=== PATIENT | male | born 1990 | race Caucasian/White ===

== ENCOUNTER → 2018-05-24 | Outpatient (REF) | payer BC | LOC: M LAB REF 19:15 | PROVIDERS: ATTEND Physician Assistant | DX: J02.9 Acute pharyngitis, unspecified (principal) ==

== ENCOUNTER → 2020-04-08 | Outpatient (REF) | payer BC ==
[2020-04-08 12:53] LABS: APPEARANCE, URINE CLEAR (CLEAR); BACTERIA, URINE AUTO NEGATIVE (NEGATIVE); BILIRUBIN, URINE AUTO NEGATIVE (NEGATIVE); BLOOD, URINE BLOOD NEGATIVE (NEGATIVE); COLOR, URINE YELLOW (YELLOW); GLUCOSE, URINE (UA) AUTO NEGATIVE (NEGATIVE); KETONE, URINE AUTO NEGATIVE (NEGATIVE); LEUKOCYTE ESTERASE, URINE AUTO NEGATIVE (NEGATIVE); MUCUS, URINE SMALL (NEGATIVE); NITRITE, URINE AUTO NEGATIVE (NEGATIVE); PROTEIN, URINE AUTO NEGATIVE (NEGATIVE); RBC, URINE AUTO 1 /HPF (0-3); SPECIFIC GRAVITY URINE AUTO 1.013 (1.002-1.035); SQUAMOUS EPITHELIAL CELL UR AU 0 /HPF (0-6); UROBILINOGEN, URINE AUTO 0.2 mg/dL (0.0-2.0); WBC, URINE AUTO 1 /HPF (0-3)
== END ==
LOC: M LAB REF 12:13
PROVIDERS: ATTEND Family Medicine
DX: R31.9 Hematuria, unspecified (principal)

== ENCOUNTER → 2024-02-13 | Outpatient (REF) | payer OTHER ==
[2024-02-15 13:43] LABS: CARDIOLIPIN IGA ANTIBODY < 2.0 APL-U/mL (<20.0); CARDIOLIPIN IGG ANTIBODY < 2.0 GPL-U/mL (<20.0); CARDIOLIPIN IGM ANTIBODY 26.4 MPL-U/mL (<20.0)
[2024-02-15 16:18] LABS: HOMOCYST(E)INE SERUM 14.3 umol/L (<11.4)
[2024-02-20 17:57] LABS: FACTOR II PROTHROMBIN GENE AN NEGATIVE
[2024-02-22 19:37] LABS: FACTOR V LEIDEN FOR MEDINET NEGATIVE
[2024-02-23 01:08] LABS: MTHFR DNA ANALYSIS POSITIVE
== END ==
LOC: M LAB REF 13:42
PROVIDERS: ATTEND Internal Medicine
DX: Z86.718 Personal history of other venous thrombosis and embolism (principal); Z83.2 Family history of diseases of the blood and blood-forming organs and certain disorders involving the immune mechanism